=== PATIENT | male | born 1940 | race Caucasian/White ===

== ENCOUNTER 2021-09-03 01:31 | Emergency (ER) | payer MEDICARE, BC ==
[~2021-09-03] VITALS: Ht 170.2 cm; Wt 56.7 kg
--- NOTE | 2021-09-03 01:45 | NUR ---
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 DENIES ANY BLOOD IN STOOL. BREATHING EVEN AND UNLABORED V/S STABLE.
[2021-09-03] MEDS ORDERED: MINERAL OIL 133 ML (PYXIS) 1 EA ENEMA RC ONE ×2 (02:00)
[2021-09-03] MEDS ORDERED: DOCU-141 PO (02:27)
[2021-09-03] MEDS ORDERED: POLY17PO4 PO (02:27)
--- NOTE | 2021-09-03 03:32 | NUR ---
PER CAREGIVER BARRETT SHE WILL PICKUP PT AT 0800
--- NOTE | 2021-09-03 04:47 | NUR ---
SLEEPING COMOFRTABLY EASILY AROUSABLE AND BREATHING EVEN AND UNLABORED. VITALS STABLE. WILL CONTINUE TO MONITOR.
--- NOTE | 2021-09-03 07:24 | NUR ---
Merritt turner in ED - 09/03/21 at 0725 by LATONYA REPORT GIVEN TO STEVEN PETERS EDIN
--- NOTE | 2021-09-03 07:25 | NUR ---
REPORT GIVEN TO STEVEN MOYER FOR EDIN
--- NOTE | 2021-09-03 09:13 | NUR ---
Patient's caregiver is at bedside. Patient discharged to home in stable condition. Written and verbal after care instructions given. Patient and caregiver verbalizes understanding of instruction.
[2021-09-03 09:14] VITALS: BP 109/63
[2021-09-04] MEDS ORDERED: HYDR25SU33 RC (02:48)
[2021-09-04] MEDS ORDERED: ONDA4TAB5 PO (02:48)
[2021-09-04] MEDS ORDERED: HYDR-3980 PO (02:48)
[2021-09-04] MEDS ORDERED: HYDROCODONE/APAP 10/325MG TABLET ONE (03:06)
[2021-09-04] MEDS ORDERED: ONDANSETRON 4 MG TAB.RAPDIS ONE (03:07)
[2021-09-04] MEDS ORDERED: HYDROCODONE/APAP 5/325MG TABLET ONE (07:26)
== END 2021-09-03 09:13 | disposition home or self-care (01) ==
LOC: ER 01:33
DX: K59.00 Constipation, unspecified (principal); I10 Essential (primary) hypertension; E11.9 Type 2 diabetes mellitus without complications; Z60.2 Problems related to living alone; Z79.899 Other long term (current) drug therapy
CPT/HCPCS: Q0162

== ENCOUNTER 2021-09-04 02:18 | Emergency (ER) | payer MEDICARE, BC ==
[~2021-09-04] VITALS: Ht 175.3 cm; Wt 72.6 kg
[~2021-09-04 02:18] MED LIST: DOCU-141 PO; POLY17PO4 PO
--- NOTE | 2021-09-04 02:45 | NUR ---
PT CAME IN C/O HEMMOROIDS PAIN 06/25. WAS SEEN YESTERDAY IN ER.
[2021-09-04] MEDS ORDERED: HYDR25SU33 RC (02:48)
[2021-09-04] MEDS ORDERED: ONDA4TAB5 PO (02:48)
[2021-09-04] MEDS ORDERED: HYDR-3980 PO (02:48)
[2021-09-04] MEDS ORDERED: HYDROCODONE/APAP 10/325MG TABLET PO ONE (03:00)
[2021-09-04] MEDS ORDERED: ONDANSETRON 4 MG TAB.RAPDIS SL ONE (03:00)
--- NOTE | 2021-09-04 04:30 | NUR ---
CAREGIVER BARRETT DUPREE CALLED WILL LABOR RELATIONS REPRESENTATIVE PATIENT S[facility] [phone] AWARE OF LOCATION
--- NOTE | 2021-09-04 04:45 | NUR ---
DISCHARGE PAPER WORK WITH RX GIVEN TO PT.
[2021-09-04] MEDS ORDERED: HYDROCODONE/APAP 5/325MG TABLET PO ONE (07:30)
[2021-09-04 08:21] VITALS: BP 141/77
--- NOTE | 2021-09-04 08:22 | NUR ---
Patient discharged to home in stable condition. Written and verbal after care instructions given. Patient verbalizes understanding of instruction.
== END 2021-09-04 08:22 | disposition home or self-care (01) ==
LOC: ER 02:19
DX: K64.4 Residual hemorrhoidal skin tags (principal); K59.00 Constipation, unspecified; I10 Essential (primary) hypertension; E11.9 Type 2 diabetes mellitus without complications; Z60.2 Problems related to living alone; Z79.899 Other long term (current) drug therapy
CPT/HCPCS: 99284; Q0162 ×2